=== PATIENT | male | born 1970 | race Caucasian/White ===

== ENCOUNTER 2018-03-22 18:49 | Emergency (ER) | payer MEDICAID, OTHER ==
[~2018-03-22] VITALS: Ht 165.1 cm; Wt 60.0 kg
[2018-03-22 18:57] VITALS: BP 135/83
[2018-03-22] MEDS ORDERED: SULF1TAB48 PO (19:50)
== END 2018-03-22 20:04 | disposition home or self-care (01) ==
LOC: ER 18:49
DX: L02.31 Cutaneous abscess of buttock (principal); F15.90 Other stimulant use, unspecified, uncomplicated; Z59.0 Homelessness; Z79.2 Long term (current) use of antibiotics
CPT/HCPCS: 99283